=== PATIENT | female | born 1985 | race American Indian/Alaskan Native ===

== ENCOUNTER 2021-08-18 15:56 | Inpatient (IN) | payer MEDICARE ==
[2021-08-18] MEDS: LACTATED RINGERS 1,000 ML IV SCH ×3 (16:27→17:51)
[2021-08-18 16:35] LABS: Hematocrit 37.5 % (30.3-42.9); Mean Corpuscular HGB Conc 32 % (30-34); Mean Corpuscular Volume 80 fl (79-97); Platelet Count 280 K/mm3 (140-440); Red Blood Count 4.67 M/mm3 (3.65-5.03); Red Cell Distribution Width 14.9 % (13.2-15.2)
[2021-08-18] MEDS ORDERED: fentaNYL 100 MCG/2 ML INJ IV PRN (17:00)
[2021-08-18] MEDS ORDERED: ePHEDrine SULFATE 50 MG/1 ML INJ IV PRN ×2 (17:00→18:00)
[2021-08-18] MEDS ORDERED: TERBUTALINE 1 MG/1 ML INJ SUB-Q PRN (17:00)
[2021-08-18] MEDS ORDERED: OXYTOCIN DRIP 30 UNITS/500 ML BAG IV SCH ×2 (17:00)
[2021-08-18] MEDS ORDERED: METHYLERGONOVINE MALEATE 0.2 MG/ML VIAL IM PRN (17:00)
[2021-08-18] MEDS ORDERED: LIDOCAINE (2%) 20 MG/1 ML VIAL 20 ML MDV INFILTRATI ONE (17:00)
[2021-08-18] MEDS ORDERED: LOPERAMIDE 2 MG CAP PO PRN (17:00)
[2021-08-18] MEDS ORDERED: CARBOPROST TROMETHAMINE 250 MCG/1 ML INJ IM PRN (17:00)
[2021-08-18] MEDS ORDERED: OXYTOCIN 10 UNIT/1 ML INJ IM PRN (17:00)
[2021-08-18] MEDS ORDERED: AMPICILLIN/NS 2 GM/100 ML 2 GM/100 ML BAG IV ONE (17:00)
[2021-08-18] MEDS ORDERED: ACETAMINOPHEN 325 MG TAB PO PRN ×2 (17:00→20:19)
[2021-08-18] MEDS ORDERED: MINERAL OIL 30 ML ORAL LIQD PO PRN (17:00)
[2021-08-18] MEDS ORDERED: BUTORPHANOL 2 MG/1 ML INJ IV PRN (17:00)
[2021-08-18] MEDS ORDERED: miSOPROStol 200 MCG TAB PR PRN (17:00)
[2021-08-18 17:25] LABS: Bilirubin,Urine NEG (Negative); Blood,Urine SM (Negative); Color,Urine Yellow (Yellow); Urobilinogen,Urine < 2.0 mg/dL (<2.0); WBC,Urine < 1.0 /HPF (0.0-6.0)
--- NOTE | 2021-08-18 17:26 | Anesthesia Consultation ---
Anesthesia Consult and Med Hx Date of service: 08/18/21 - Airway Anesthetic Teeth Evaluation: Good ROM Head & Neck: Adequate Mental/Hyoid Distance: Adequate Mallampati Class: Class II Intubation Access Assessment: Probably Good - Pulmonary Exam CTA: Yes - Cardiac Exam Cardiac Exam: RRR - Pre-Operative Health Status ASA Pre-Surgery Classification: ASA2 Proposed Anesthetic Plan: Epidural - Pulmonary Hx Asthma: No - Cardiovascular System Hx Hypertension: No - Central Nervous System Hx Seizures: No Hx Psychiatric Problems: No - Endocrine Hx Renal Disease: No Hx Hypothyroidism: No Hx Hyperthyroidism: No - Hematic Hx Anemia: No Hx Sickle Cell Disease: No - Other Systems Hx Alcohol Use: No
[2021-08-18 17:27] LABS: RBC,Urine < 1.0 /HPF (0.0-6.0)
--- NOTE | 2021-08-18 17:27 | Progress Note ---
Labor Epidural - Labor Epidural Start Time: 17:15 Stop Time: 17:21 Performed by:: MOE ESTEVES Procedure: Patient is requesting epidural for labor pain. H&P, and labs reviewed. Procedure explained, questions answered, consent obtained. Patient in sitting position with blood pressure cuff and pulse ox on and working. Timeout performed immediately before start of procedure. Sterile Duraprep prep/drape. 3 mL 1% lidocaine skin wheal at L[3]-L[4]. 17-gauge tuohy epidural needle advanced to [id number] with saline at [7] cm. 25-gauge spinal needle advanced until clear, free-flowing CSF. Intrathecal dexmedetomidine [5] mcg administered and needle removed. Epidural catheter advanced to [12] cm, negative aspiration for blood and csf, negative test dose 3 ml 1.5% lidocaine with epinephrine. Sterile sponge and tegaderm applied, followed by tape reinforcement. Patient tolerated procedure well.
[2021-08-18 17:33] LABS: Amphetamine Screen,Urine Negative; Benzodiazepines Screen,Urine Negative; Cannabinoid Screen,Urine Negative; Cocaine Screen,Urine Negative; Methadone Screen,Urine Negative; Opiate Screen,Urine Negative
[2021-08-18] MEDS ORDERED: fentaNYL-BUPIV 2 MCG/ML-0.125% 200 MCG/100 ML BAG EPIDURAL SCH (18:00)
[2021-08-18] MEDS ORDERED: NALOXONE 2 MG/2 ML INJ IV PRN (18:00)
--- NOTE | 2021-08-18 19:49 | History and Physical Report ---
History of Present Illness Date of examination: 08/18/21 Date of admission: 08/18/21 17:03 Chief complaint: fully dialated at term labor Past History Past Medical History: no pertinent history - Obstetrical History Expected Date of Delivery: 08/16/21 Actual Gestation: 40 Week(s) 2 Day(s) : 1 Para: 0 Medications and Allergies Allergies Allergy/AdvReac Type Severity Reaction Status Date / Time No Known Allergies Allergy Verified 08/18/21 16:01 Home Medications Medication Instructions Recorded Confirmed Last Taken Type One Daily Tablet 1 tab PO DAILY 08/18/21 08/18/21 08/17/21 History Active Meds: Active Medications Acetaminophen (Acetaminophen 325 Mg Tab) 650 mg PO Q4H PRN PRN Reason: Pain, Mild (1-3) Butorphanol Tartrate (Butorphanol 2 Mg/1 Ml Inj) 1 mg IV Q2H PRN PRN Reason: Pain, Moderate(4-6) LABOR PAIN Carboprost Tromethamine (Carboprost Tromethamine 250 Mcg/1 Ml Inj) 250 mcg IM ONCE PRN PRN Reason: Uterine Bleeding Ephedrine Sulfate (Ephedrine Sulfate 50 Mg/1 Ml Inj) 10 mg IV Q2M PRN PRN Reason: Hypotension Fentanyl (Fentanyl 100 Mcg/2 Ml Inj) 100 mcg IV Q2H PRN PRN Reason: Pain,Severe (7-10) LABOR PAIN Oxytocin/Sodium Chloride (Pitocin/Ns 30 Unit/500ml) 30 units in 500 mls @ 2 mls/hr IV TITR JOY; Protocol Lactated Ringer's (Lactated Ringers) 1,000 mls @ 125 mls/hr IV DIRECT JOY Last Admin: 08/18/21 17:51 Dose: 125 mls/hr Oxytocin/Sodium Chloride (Pitocin/Ns 30 Unit/500ml) 30 units in 500 mls @ 40 mls/hr IV TITR JOY; Protocol Ampicillin Sodium (Ampicillin/Ns 1 Gm/50 Ml) 1 gm in 50 mls @ 100 mls/hr IV Q4H JOY; Protocol Fentanyl/Bupivacaine/Sodium Chlor (Fentanyl-Bupiv 2 Mcg/Ml-0.125%) 200 mcg in 100 mls @ 12 mls/hr EPIDURAL TITR JOY; Protocol Loperamide HCl (Loperamide 2 Mg Cap) 2 mg PO ONCE PRN PRN Reason: give with Hemabate Methylergonovine Maleate (Methylergonovine Maleate 0.2 Mg/Ml Vial) 0.2 mg IM ONCE PRN PRN Reason: Uterine Bleeding Mineral Oil (Mineral Oil 30 Ml Oral Liqd) 30 ml PO QHS PRN PRN Reason: Constipation Misoprostol (Misoprostol 200 Mcg Tab) 800 mcg [place] ONCE PRN PRN Reason: Uterine Bleeding Naloxone HCl (Naloxone 2 Mg/2 Ml Inj) 0.2 mg IV Q5M PRN PRN Reason: Respiratory sedation Oxytocin (Oxytocin 10 Unit/1 Ml Inj) 10 unit IM ONCE PRN PRN Reason: Uterine Bleeding Terbutaline Sulfate (Terbutaline 1 Mg/1 Ml Inj) 0.25 mg SUB-Q ONCE PRN PRN Reason: Hyperstimulation/Hypertonicity Review of Systems All systems: negative Genitourinary: contractions - Vital Signs Vital signs: Vital Signs Pulse BP 65 139/65 08/18/21 16:00 08/18/21 16:00 Temp Pulse Resp BP Pulse Ox 97.8 F 68 14 137/79 98 08/18/21 18:52 08/18/21 19:41 08/18/21 18:52 08/18/21 19:29 08/18/21 19:41 - Physical Exam Lungs: Positive: Normal air movement Abdomen: Positive: distention Genitourinary (Female): Positive: normal external genitalia Vulva: both: normal Cervix: Negative: lesion, discharge Uterus: Positive: enlarged, normal contour Extremities: Positive: normal Deep Tendon Reflex Grade: Dull/Diminished +1 (epidural) - Obstetrical FHR: auscultation normal Uterine Contraction Monitor Mode: Palpation Cervical Dilatation: 10 Cervical Effacement Percentage: 100 station: 0+2 Results Result Diagrams: 08/18/21 16:15 Abnormal lab results 08/18/21 08/18/21 Range/Units 16:15 16:31 WBC 11.4 H (4.5-11.0) K/mm3 MCH 26 L (28-32) pg Urine pH 8.0 H (5.0-7.0) All other labs normal. Assessment and Plan - Patient Problems (1) Postmaturity , 40-42 weeks gestation Current Visit: Yes Status: Acute (2) 40 weeks gestation of Current Visit: Yes Status: Acute (3) Active labor at term Current Visit: Yes Status: Acute Plan to address problem: Delivery imminent.
[2021-08-18] MEDS ORDERED: HYDROcodone/ACETAMINOPHEN 5-325 MG TAB PO PRN (20:19)
[2021-08-18] MEDS ORDERED: LANOLIN/ZINC/DIMETHICONE (LANSINOH) 7 GM TP PRN (20:19)
[2021-08-18] MEDS ORDERED: ONDANSETRON 4 MG/2 ML INJ IV PRN (20:19)
[2021-08-18] MEDS ORDERED: WITCH HAZEL/ GLYCERIN PAD TP PRN (20:19)
[2021-08-18] MEDS ORDERED: diphenhydrAMINE 25 MG CAP PO PRN (20:19)
[2021-08-18] MEDS ORDERED: PROMETHAZINE 25 MG RECT SUPP PR PRN (20:19)
[2021-08-18] MEDS ORDERED: MAGNESIUM HYDROXIDE (MOM) ORAL LIQD UDC PO PRN (20:19)
[2021-08-18] MEDS ORDERED: KETOROLAC 30 MG/1 ML INJ IV PRN (20:19)
[2021-08-18] MEDS ORDERED: PROMETHAZINE 25 MG TAB PO PRN (20:19)
--- NOTE | 2021-08-18 20:19 | Procedure Note ---
OB Delivery Note - Delivery Date of Delivery: 08/18/21 Surgeon: DURAN GOMEZ Estimated blood loss: 200cc - Vaginal Delivery presentation: vertex Delivery position: OA Intrapartum events: none Delivery induction: none Delivery monitor: external FHT, external uterine Route of delivery: Delivery placenta: spontaneous Delivery cord: 3 umbilical vessels Episiotomy: none Delivery laceration: none Anesthesia: epidural - A at 1 minute: 8 at 5 minutes: 9 Infant Gender: Female
[2021-08-18] MEDS ORDERED: AMPICILLIN/NS 1 GM/50 ML 1 GM/50 ML BAG IV SCH (21:00)
[2021-08-19] MEDS ORDERED: TETANUS,DIPH,PERTUSS(ACELL) VACCINE 0.5 ML SYRINGE IM ONE (06:00)
[2021-08-19] MEDS: PRENATAL VIT27-FE FUMARATE-FOLIC ACID VIT TAB PO SCH (10:20)
[2021-08-19 11:10] LABS: Hematocrit 30.9 % (30.3-42.9)
--- NOTE | 2021-08-19 11:58 | Post Anesthesia Evaluation ---
- Post Anesthesia Evaluation Patient Participated: Yes Airway Patent: Yes Stable Respiratory Function: Yes Nausea/Vomiting: No Temp > 96.8F: Yes Pain Manageable: Yes Adequeate Hydration: Yes Anesthesia Complications: No Block Receding Appropriately: Yes
[2021-08-19] MEDS ORDERED: FLU VACC QUAD 2021-22(6MOS UP)/PF 60 MCG/0.5 ML SYRINGE IM ONE (17:50)
--- NOTE | 2021-08-19 18:01 | Progress Note ---
Assessment and Plan - Patient Problems (1) Postmaturity , 40-42 weeks gestation Current Visit: Yes Status: Resolved (2) 40 weeks gestation of Current Visit: Yes Status: Resolved (3) Active labor at term Current Visit: Yes Status: Resolved (4) Status post vaginal delivery Current Visit: Yes Status: Acute Plan to address problem: stable and may go home from 24 hrs . Subjective - Subjective Date of service: 08/19/21 Principal diagnosis: Status post day1. Interval history: Doing well, no complaints. Patient reports: appetite normal, voiding normally, pain well controlled, ambulating normally Objective - Vital Signs Latest vital signs: Vital Signs Temp Pulse Resp BP BP Pulse Ox Pulse Ox 08/19/21 08:21 98.7 F 92 H 18 120/72 92 08/19/21 04:49 98.2 F 99 H 18 125/73 97 08/18/21 22:16 100 08/18/21 22:10 98.2 F 61 20 132/81 100 08/18/21 21:34 72 83 L 08/18/21 21:32 81 126/76 08/18/21 21:31 89 97 08/18/21 21:26 75 97 08/18/21 21:21 73 97 08/18/21 21:16 61 98 08/18/21 21:11 62 98 08/18/21 21:06 60 98 08/18/21 21:01 61 98 08/18/21 20:56 63 98 08/18/21 20:51 67 98 08/18/21 20:49 65 143/87 08/18/21 20:46 67 98 08/18/21 20:43 60 155/86 08/18/21 20:41 63 99 08/18/21 20:36 66 98 08/18/21 20:31 78 97 08/18/21 20:26 68 98 08/18/21 20:22 71 142/86 08/18/21 20:21 86 98 08/18/21 20:16 89 100 08/18/21 20:14 82 132/78 08/18/21 20:11 79 99 08/18/21 20:06 80 98 08/18/21 20:05 85 94 08/18/21 20:01 78 143/88 98 08/18/21 19:56 69 98 08/18/21 19:51 66 98 02/05/22 19:46 64 141/75 99 08/18/21 19:41 68 98 08/18/21 19:36 60 99 08/18/21 19:31 62 98 08/18/21 19:29 60 137/79 08/18/21 19:26 61 97 08/18/21 19:21 61 96 08/18/21 19:16 70 97 08/18/21 19:14 69 149/75 08/18/21 19:11 59 L 96 08/18/21 19:06 61 98 08/18/21 19:01 63 97 08/18/21 18:59 61 133/86 08/18/21 18:56 64 97 08/18/21 18:55 76 94 08/18/21 18:54 57 L 132/80 08/18/21 18:52 97.8 F 58 L 14 132/80 100 98 08/18/21 18:51 58 L 98 08/18/21 18:46 74 96 08/18/21 18:44 62 123/77 08/18/21 18:41 64 98 08/18/21 18:40 71 94 08/18/21 18:36 62 96 08/18/21 18:35 64 94 08/18/21 18:31 76 96 08/18/21 18:29 61 118/72 08/18/21 18:28 63 94 08/18/21 18:26 66 95 08/18/21 18:23 68 94 08/18/21 18:21 78 95 08/18/21 18:17 62 94 08/18/21 18:16 60 97 08/18/21 18:15 64 120/74 08/18/21 18:12 68 94 08/18/21 18:11 68 95 08/18/21 18:07 64 94 08/18/21 18:06 75 95 08/18/21 18:01 63 96 08/18/21 18:00 75 117/72 Intake and Output 08/19/21 08/19/21 08/19/21 07:59 15:59 23:59 Intake Total 120 240 Output Total 300 600 Balance -180 -360 Intake: Oral 120 240 Output: Urine 300 600 Void 300 600 Other: Total, Intake Amount 120 240 Total, Output Amount 300 600 - Exam Breasts: Present: deferred Lungs: Present: Normal air movement Abdomen: Present: normal appearance, soft Extremities: Present: normal Deep Tendon Reflex Grade: Normal +2 Incision: Present: normal, dry, intact - Labs Labs: Abnormal lab results 08/19/21 Range/Units 10:37 Hgb 10.0 L (10.1-14.3) gm/dl
--- NOTE | 2021-08-19 18:10 | Discharge Summary ---
Providers - Providers Date of Admission: 08/18/21 17:03 Date of discharge: 08/19/21 Attending physician: DURAN GOMEZ MD 08/19/21 14:43 Consult to Mental Health [CONS] Routine Reason For Exam: [place] Score Primary care physician: VENITA ANGEL MD Hospitalization Reason for admission: active labor, IUP at term Delivery: Episiotomy: none Laceration: none Other procedures: none complications: none Discharge diagnosis: IUP at term delivered baby: female Condition at discharge: Good Disposition: 01 HOME / SELF CARE / HOMELESS - Discharge Diagnoses (1) Postmaturity , 40-42 weeks gestation Status: Resolved (2) 40 weeks gestation of Status: Resolved (3) Active labor at term Status: Resolved (4) Status post vaginal delivery Status: Acute Plan - Provider Discharge Summary Activity: routine, no sex for 6 weeks, no heavy lifting 4 weeks, no strenuous exercise Diet: routine Instructions: routine Additional instructions: [] Smoking cessation referral if applicable(refer to patient education folder for contact #) [] Refer to [facility]'s [facility] Booklet Call your doctor immediately for: * Fever > 100.5 * Heavy vaginal bleeding ( >1 pad per hour) * Severe persistent headache * Shortness of breath * Reddened, hot, painful area to leg or breast * Drainage or odor from incision. * Keep incision clean and dry at all times and follow doctor's instructions regarding bathing/showering - Follow up plan Follow up: PRIMARY CARE, [Primary Care Provider] - 7 Days Forms: [facility] Discharge Summary
[2021-08-19] MEDS: IBUPROFEN 600 MG TAB PO SCH (18:15)
[2021-08-20] MEDS: IBUPROFEN 600 MG TAB PO SCH ×4 (06:00→15:02)
[2021-08-20] MEDS: PRENATAL VIT27-FE FUMARATE-FOLIC ACID VIT TAB PO SCH (10:25)
[2021-08-20] MEDS ORDERED: FLU VACC QUAD 2021-22(6MOS UP)/PF 60 MCG/0.5 ML SYRINGE IM ONE ×2 (11:00→15:00)
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
[2021-08-20 15:55] VITALS: BP 124/81
== END 2021-08-20 18:20 | disposition home or self-care (01) | DRG 807 ==
LOC: TRG 15:56 → APU 15:57 → TRG 17:01 → LD 17:03 → OB 21:45
PROVIDERS: ADMIT Obstetrics & Gynecology; ATTEND Obstetrics & Gynecology
PROC: 10E0XZZ Delivery of Products of Conception, External Approach (ICD-10-PCS; principal; 2021-08-18)
PROC: 3E0R3BZ Introduction of Anesthetic Agent into Spinal Canal, Percutaneous Approach (ICD-10-PCS; 2021-08-18)
PROC: 00HU33Z Insertion of Infusion Device into Spinal Canal, Percutaneous Approach (ICD-10-PCS; 2021-08-18)
PROC: 3E0234Z Introduction of Serum, Toxoid and Vaccine into Muscle, Percutaneous Approach (ICD-10-PCS; 2021-08-19)
DX: O48.0 Post-term pregnancy (principal); Z37.0 Single live birth; Z3A.40 40 weeks gestation of pregnancy; O99.344 Other mental disorders complicating childbirth; F32.9 Major depressive disorder, single episode, unspecified; Z20.822 Contact with and (suspected) exposure to COVID-19; Z23 Encounter for immunization
CPT/HCPCS: 36415; 59025; 80307; 81001; 85014; 85018; 85027; 86592; 86706; 86762; 86850; 86900; 86901; 87806; 90471; 90686; 90715; 96360; G0378; J0290; J7120; U0003